=== PATIENT | male | born 1980 | race Two or more races ===

== ENCOUNTER 2022-05-14 16:25 | Emergency (ER) | payer OTHER ==
[2022-05-14 17:06] VITALS: BP 120/82; PULSE 72; TEMP 98.2; BMI 24.5
[2022-05-14 18:01] LABS: HEMATOCRIT 39.4 % (35.4-49); HEMOGLOBIN 14.3 G/dL (11.7-16.9); MCH 29.9 pg (25.7-33.7); MCHC 36.3 g/dl (32.0-35.9); MEAN CELL VOLUME 82.2 fl (80-96); MEAN PLT VOLUME 9.7 fl (7.5-11.1); PLATELET COUNT 164.1 10^3/uL (134-434); RBC 4.79 10^6/uL (4.00-5.60); RDW 13.9 % (11.9-15.9); WHITE BLOOD COUNT 7.6 10^3/uL (4.0-10.8)
[2022-05-14 18:06] LABS: INR 1.03 (0.83-1.09); PROTHROMBIN TIME (PATIENT) 11.8 SEC (9.7-13.0)
[2022-05-14 18:07] LABS: ALBUMIN 4.5 g/dl (3.4-5.0); BILIRUBIN,TOTAL 0.7 mg/dl (0.2-1); CALCIUM 9.3 mg/dl (8.5-10); TOT PROT 7.9 g/dl (6.4-8.2)
[2022-05-14 20:10] LABS: PLATELET ESTIMATE ADEQUATE
== END 2022-05-14 20:01 | disposition home or self-care (01) ==
LOC: FER 16:25
DX: R07.9 Chest pain, unspecified (principal)
CPT/HCPCS: 36415; 71046-TC-FY; 80053; 84484; 85025; 85379; 85610; 93005; 99285-25